=== PATIENT | female | born 1990 | race African-American/Black ===

== ENCOUNTER 2018-05-12 18:51 | Emergency (ER) | payer OTHER ==
[~2018-05-12] VITALS: Ht 170.2 cm; Wt 131.0 kg
[2018-05-12 19:02] VITALS: BP 104/59
== END 2018-05-12 20:56 | disposition left against medical advice (07) ==
LOC: ER 18:51
DX: Z53.21 Procedure and treatment not carried out due to patient leaving prior to being seen by health care provider (principal)

== ENCOUNTER 2023-08-30 09:01 | Emergency (ER) | payer MEDICAID, OTHER ==
[~2023-08-30] VITALS: Ht 170.2 cm; Wt 134.0 kg
[2023-08-30 09:12] VITALS: O2SAT 99
[2023-08-30] MEDS: FLUORESCEIN SODIUM 1MG/STRIP RIGHTEYE ONE (09:45)
[2023-08-30] MEDS: TETRACAINE 0.5% OPHTH DROPS 4ML RIGHTEYE ONE (09:45)
[2023-08-30] MEDS ORDERED: CIPR2.5D17 RIGHTEYE (10:09)
[2023-08-30 10:45] VITALS: BP 133/68; PULSE 70; RESP 16; TEMP 97.5
[2023-08-30] MEDS: IBUPROFEN 600MG TABLET PO ONE (10:45)
== END 2023-08-30 14:56 | disposition home or self-care (01) ==
LOC: ER 09:58
DX: H16.001 Unspecified corneal ulcer, right eye (principal); H57.11 Ocular pain, right eye; Z87.19 Personal history of other diseases of the digestive system; Z98.890 Other specified postprocedural states
CPT/HCPCS: 81025; 99283

== ENCOUNTER 2025-01-01 08:00 | Emergency (ER) | payer MEDICAID, OTHER ==
[~2025-01-01] VITALS: Ht 170.2 cm; Wt 124.0 kg
[~2025-01-01 08:00] MED LIST: CIPR2.5D17 RIGHTEYE
[2025-01-01 08:02] VITALS: O2SAT 97
[2025-01-01 08:05] VITALS: BP 123/80; PULSE 99; RESP 18; TEMP 36.8; O2SAT 100
[2025-01-01] MEDS ORDERED: ERYT1OIN6 EACHEYE (08:24)
[2025-01-01] MEDS: TETRACAINE 0.5% OPHTH DROPS 4ML BOTHEYE ONE (08:37)
== END 2025-01-01 08:39 | disposition home or self-care (01) ==
LOC: ER 08:00
DX: H10.9 Unspecified conjunctivitis (principal); Z98.890 Other specified postprocedural states
CPT/HCPCS: 99283

== ENCOUNTER 2025-01-24 10:46 | Emergency (ER) | payer MEDICAID, OTHER ==
[~2025-01-24] VITALS: Ht 172.7 cm; Wt 127.0 kg
[~2025-01-24 10:46] MED LIST changes: +ERYT1OIN6 EACHEYE
[2025-01-24 10:49] VITALS: O2SAT 100
[2025-01-24] MEDS: TETRACAINE 0.5% OPHTH DROPS 4ML BOTHEYE ONE (13:36)
[2025-01-24] MEDS ORDERED: CETI1TAB MT (13:46)
[2025-01-24] MEDS ORDERED: PROP1DRO2 MT (13:46)
[2025-01-24 14:09] VITALS: BP 124/89; PULSE 87; RESP 19; TEMP 36.9; O2SAT 100
== END 2025-01-24 14:12 | disposition home or self-care (01) ==
LOC: ER 10:46
DX: H53.143 Visual discomfort, bilateral (principal); I10 Essential (primary) hypertension; F10.90 Alcohol use, unspecified, uncomplicated; Z79.899 Other long term (current) drug therapy; Y90.9 Presence of alcohol in blood, level not specified
CPT/HCPCS: 99282